=== PATIENT | male | born 1990 | race Two or more races ===

== ENCOUNTER → 2024-09-20 | Outpatient (CLI) | payer MEDICAID, SELFPAY ==
--- NOTE | 2024-09-20 10:53 | XR_ITS ---
Examination: Thoracic 3 views Technique one AP lateral coned lateral upper dorsal spine 3 views Exam date and time: September 20, 2024 1111 hours INDICATIONS: Upper back pain beginning 3 months ago. FINDINGS: Satisfactory alignment thoracic vertebral bodies No thoracic fracture Mild disc narrowing mid thoracic disc levels Moderate degenerative disc disease C5-C6 IMPRESSION: Mild thoracic degenerative disc disease Moderate degenerative disc disease C5-C6
--- NOTE | 2024-09-20 10:53 | XR_ITS ---
Examination: Lumbar spine 3 views Technique one AP lateral coned lateral lower lumbar spine 3 views Exam date and time: September 20, 2024 1106 hours INDICATIONS: Lower back pain beginning 3 months ago. FINDINGS: Lumbar levoscoliosis 8 degrees which may be positional No lumbar fracture Minimal disc narrowing L4-L5 Moderate disc narrowing L5-S1 No spondylolisthesis IMPRESSION: Moderate disc narrowing L5-S1
== END | disposition home or self-care (01) ==
LOC: SDIM 10:27
PROVIDERS: PCP Physician Assistant; Referring Provider Chiropractor; Visit Provider Chiropractor
DX: M51.34 Other intervertebral disc degeneration, thoracic region (principal); M50.322 Other cervical disc degeneration at C5-C6 level; M48.07 Spinal stenosis, lumbosacral region
CPT/HCPCS: 72072; 72100